=== PATIENT | male | born 1945 | race Caucasian/White ===

== ENCOUNTER 2016-09-10 23:34 | Inpatient (IN) | payer MEDICAID, MEDICARE, OTHER ==
[~2016-09-10] VITALS: Ht 170.2 cm; Wt 72.6 kg
--- NOTE | 2016-09-10 23:43 | Emergency Room Report ---
History of Present Illness General Chief Complaint: General Complaint Source: Medical Record, EMS, PMD Present Illness HPI Is a 71-year-old male with a history COPD and schizophrenia. Also history of joint weakness and anxiety. [facility] with chief complaint of generalized weakness and poor by mouth intake. He refusing food and medication. Patient is not cooperative in giving history. History is through prison staff and primary care Dr. No complaint of fever chills. No complaint of nausea vomiting or diarrhea. Allergies: Coded Allergies: CODEINE (Unverified Allergy, Unknown, 09/10/16) Patient History Past Medical History: see triage record, old chart reviewed, HTN Past Surgical History: other Pertinent Family History: none Social History: Reports: smoking Immunizations: other Reviewed Nursing Documentation: PMH: Agreed, PSxH: Agreed Review of Systems Constitutional: Reports: weakness All Other Systems: limited - Not cooperative. Physical Exam Vital Signs Date Time Temp Pulse Resp B/P Pulse Ox O2 Delivery O2 Flow Rate FiO2 09/10/16 23:34 97.0 18 119/76 98 Room Air vitals unremarkable Sp02 EP Interpretation: reviewed, normal General Appearance: no apparent distress, alert, thin, Chronically Ill Head: normocephalic, atraumatic Eyes: bilateral eye EOMI, bilateral eye PERRL ENT: hearing grossly normal, normal pharynx Neck: full range of motion, supple, no meningismus Respiratory: chest non-tender, lungs clear, normal breath sounds Cardiovascular #1: regular rate, rhythm, no murmur Gastrointestinal: normal bowel sounds, non tender, no mass, no organomegaly, no bruit, non-distended Musculoskeletal: back normal, normal range of motion Neurologic: alert, grossly normal Psychiatric: other - Flat affect Skin: warm/dry Medical Decision Making Diagnostic Impression: Primary Impression: Failure to thrive Qualified Codes: R62.7 - Adult failure to thrive Additional Impression: Dehydration ER Course Patient with failure to thrive. Probably more psychogenic than organic. No evidence of infection. Urinalysis still pending. I discussed the case with Dr. Dewitt who will admit for Dr. Salazar. Lab Results Impression labs unremarkable Rhythm Strip Diag. Results Rhythm Strip Time: 00:58 EP Interpretation: yes Rate: 71 Rhythm: NSR Last Vital Signs Date Time Temp Pulse Resp B/P Pulse Ox O2 Delivery O2 Flow Rate FiO2 09/10/16 23:34 97.0 18 119/76 98 Room Air Status: improved Disposition: ADMITTED INPATIENT Condition: Serious REMA GARCIA M.D. Sep 10, 2016 23:43
[2016-09-11] VITALS: BP 136/81
[2016-09-11] MEDS ORDERED: LORazepam Inj 2mg/ml 1ml IV PRN
[2016-09-11] MEDS ORDERED: Miralax 17gm pkt ORAL PRN
[2016-09-11] MEDS ORDERED: Mylanta II UD 30ml ORAL PRN
[2016-09-11] MEDS ORDERED: Zolpidem 5mg tab ORAL PRN
[2016-09-11 00:35] LABS: BASOPHILS % (AUTO) 1.1 % (0.0-2.0); EOSINOPHILS % (AUTO) 0.9 % (0.0-3.0); LYMPHOCYTES % (AUTO) 34.1 % (20.0-45.0); MEAN CORPUSCULAR HEMOGLOBIN 30.5 PG (27.0-31.0); MEAN CORPUSCULAR HGB CONC 33.8 G/DL (32.0-36.0); MEAN CORPUSCULAR VOLUME 90 FL (80-99); MEAN PLATELET VOLUME 12.3 FL (6.5-10.1); MONOCYTES % (AUTO) 5.4 % (1.0-10.0); NEUTROPHILS % (AUTO) 58.5 % (45.0-75.0); PLATELET COUNT 179 K/UL (150-450); RED CELL DISTRIBUTION WIDTH 13.4 % (11.6-14.8); WHITE BLOOD COUNT 8.1 K/UL (4.8-10.8)
[2016-09-11 00:54] LABS: ALANINE AMINOTRANSFERASE 17 U/L (3-41); ALBUMIN/GLOBULIN RATIO 0.9 (1.0-2.7); ANION GAP 24 (5-15); ASPARTATE AMINO TRANSFERASE 31 U/L (5-40); CALCIUM 10.4 mg/dL (8.6-10.2); CARBON DIOXIDE 22 mEQ/L (20-30); CHLORIDE 95 mEQ/L (98-107); GLOMERULAR FILTRATION RATE > 60 mL/min (>60); HEMOLYSIS 129; POTASSIUM 4.4 mEQ/L (3.4-4.9); SODIUM 141 mEQ/L (135-145); TOTAL PROTEIN 9.6 g/dL (6.6-8.7)
[2016-09-11 01:14] LABS: TROPONIN I < 0.30 ng/mL (<=0.30)
[2016-09-11 01:23] LABS: APPEARANCE,URINE CLEAR; KETONES,URINE 4+ (NEGATIVE); LEUKOCYTE ESTERASE ,URINE 1+ (NEGATIVE); NITRITE,URINE NEGATIVE (NEGATIVE); PH,URINE 6 (4.5-8.0); PROTEIN,URINE 1+ (NEGATIVE); UROBILINOGEN,URINE 4 MG/DL (0.0-1.0)
[2016-09-11 01:31] LABS: ICTOTEST POSITIVE; RBC,URINE 0-2 /HPF (0 - 0); SQUAMOUS EPITHELIAL CELL,UR FEW /LPF (NONE/OCC); WBC,URINE 0-2 /HPF (0 - 0)
[2016-09-11 01:44] VITALS: BP 135/83
[2016-09-11 04:00] VITALS: BP 124/79
[2016-09-11] MEDS ORDERED: FLEET ENEMA133 ML RECTAL (04:12)
[2016-09-11] MEDS ORDERED: MILK OF MA400 MG/51 ORAL (04:12)
[2016-09-11] MEDS ORDERED: COLACE100 MG ORAL (04:12)
[2016-09-11] MEDS ORDERED: ZYPREXA10 MG ORAL (04:12)
[2016-09-11] MEDS ORDERED: ACETAMINOPHEN325 M1 ORAL ×2 (04:12)
[2016-09-11] MEDS ORDERED: RESTORIL15 MG ORAL (04:12)
[2016-09-11] MEDS ORDERED: ATIVAN1 MG ORAL (04:12)
[2016-09-11] MEDS ORDERED: BISACODYL5 MG RECTAL (04:12)
[2016-09-11] MEDS ORDERED: SENOKOT8.6 MG PO (04:12)
[2016-09-11] MEDS ORDERED: DUONEB 0.5-3(2.53 ML HHN (04:12)
[2016-09-11] MEDS ORDERED: MULTI-VITAMIN1 EACH PO (04:12)
[2016-09-11] MEDS ORDERED: TYLENOL650 MG/20. ORAL (04:12)
[2016-09-11] MEDS ORDERED: MIRTAZAPINE15 MG ORAL (04:12)
--- NOTE | 2016-09-11 17:22 | Infectious Diseases Prog Note ---
Assessment/Plan Problems: (1) Failure to thrive Assessment & Plan: rhonda screen for HIV and syphilis, recommend dietitian consult (2) Dehydration Assessment & Plan: continue ivf fluids , monitor electrolytes (3) COPD (chronic obstructive pulmonary disease) Assessment & Plan: continue nebulizers, and oxygen (4) Schizophrenia Assessment & Plan: continue psych meds, folow up with psychiatrist Subjective Allergies: Coded Allergies: CODEINE (Unverified Allergy, Unknown, 09/10/16) Objective Vital Signs Last 24 Hour Vital Signs Date Time Temp Pulse Resp B/P Pulse Ox O2 Delivery O2 Flow Rate FiO2 09/11/16 04:00 96.5 72 20 124/79 99 Room Air 72 09/11/16 02:05 62 20 132/73 100 Room Air 09/11/16 01:44 63 17 135/83 100 Room Air 09/11/16 00:00 81 18 136/81 100 Room Air 09/10/16 23:34 97.0 18 119/76 98 Room Air Height (Feet): 5 Height (Inches): 7.00 Weight (Pounds): 160 Laboratory Tests Test 09/11/16 00:10 09/11/16 01:00 White Blood Count 8.1 K/UL (4.8-10.8) Red Blood Count 6.00 M/UL (4.70-6.10) Hemoglobin 18.0 G/DL (14.2-18.0) Hematocrit 54.1 % (42.0-52.0) H Mean Corpuscular Volume 90 FL (80-99) Mean Corpuscular Hemoglobin 30.5 PG (27.0-31.0) Mean Corpuscular Hemoglobin Concent 33.8 G/DL (32.0-36.0) Red Cell Distribution Width 13.4 % (11.6-14.8) Platelet Count 179 K/UL (150-450) Mean Platelet Volume 12.3 FL (6.5-10.1) H Neutrophils (%) (Auto) 58.5 % (45.0-75.0) Lymphocytes (%) (Auto) 34.1 % (20.0-45.0) Monocytes (%) (Auto) 5.4 % (1.0-10.0) Eosinophils (%) (Auto) 0.9 % (0.0-3.0) Basophils (%) (Auto) 1.1 % (0.0-2.0) Sodium Level 141 mEQ/L (135-145) Potassium Level 4.4 mEQ/L (3.4-4.9) Chloride Level 95 mEQ/L (98-107) L Carbon Dioxide Level 22 mEQ/L (20-30) Anion Gap 24 (5-15) H Blood Urea Nitrogen 17 mg/dL (7-23) Creatinine 1.0 mg/dL (0.7-1.2) Estimat Glomerular Filtration Rate > 60 mL/min (>60) Glucose Level 72 mg/dL (74-106) L Calcium Level 10.4 mg/dL (8.6-10.2) H Total Bilirubin 0.9 mg/dL (0.0-1.2) Aspartate Amino Transf (AST/SGOT) 31 U/L (5-40) Alanine Aminotransferase (ALT/SGPT) 17 U/L (3-41) Alkaline Phosphatase 71 U/L (40-129) Troponin I < 0.30 ng/mL (<=0.30) Total Protein 9.6 g/dL (6.6-8.7) H Albumin 4.6 g/dL (3.5-5.2) Globulin 5.0 g/dL Albumin/Globulin Ratio 0.9 (1.0-2.7) L Urine Color Yellow Urine Appearance Clear Urine pH 6 (4.5-8.0) Urine Specific [place] 1.025 (1.005-1.035) Urine Protein 1+ (NEGATIVE) H Urine Glucose (UA) Negative (NEGATIVE) Urine Ketones 4+ (NEGATIVE) H Urine Occult Blood Negative (NEGATIVE) Urine Nitrite Negative (NEGATIVE) Urine Bilirubin 1+ (NEGATIVE) H Urine Ictotest Positive Urine Urobilinogen 4 MG/DL (0.0-1.0) H Urine Leukocyte Esterase 1+ (NEGATIVE) H Urine RBC 0-2 /HPF (0 - 0) H Urine WBC 0-2 /HPF (0 - 0) Urine Squamous Epithelial Cells Few /LPF (NONE/OCC) Urine Bacteria None /HPF (NONE) Current Medications Medications (Trade) Dose Ordered Sig/Mili Route PRN Reason Start Time Stop Time Status Last Admin Dose Admin Acetaminophen (Tylenol) 650 mg Q4H PRN ORAL fever 09/11/16 00:00 10/11/16 00:00 Al Hydroxide/Mg Hydroxide (Mylanta II) 30 ml Q6H PRN ORAL dyspepsia 09/11/16 00:00 10/11/16 00:00 Dextrose (Dextrose 50%) STAT PRN IV Hypoglycemia 09/11/16 00:00 10/11/16 00:00 Lorazepam (Ativan 2mg/ml 1ml) 0.5 mg Q4H PRN IV For Anxiety 09/11/16 00:00 09/18/16 00:00 Ondansetron HCl (Zofran) 4 mg Q6H PRN IVP Nausea & Vomiting 09/11/16 00:00 10/11/16 00:00 Polyethylene Glycol (Miralax) 17 gm HSPRN PRN ORAL Constipation 09/11/16 00:00 10/11/16 00:00 Zolpidem Tartrate (Ambien) 5 mg HSPRN PRN ORAL Insomnia 09/11/16 00:00 10/11/16 00:00 Irasema Molina M.D. Sep 11, 2016 17:22
--- NOTE | 2016-09-11 17:30 | History and Physical Report ---
DATE OF ADMISSION: 09/11/2016 TIME SEEN: 2 p.m. CONSULTANTS: 1. José Manuel Dewitt M.D. 2. Daisy Travis M.D. CHIEF COMPLAINT: Failure to thrive, dehydration, alcohol intoxication, and encephalopathy. BRIEF HISTORY: This is a 71-year-old male from [facility] presents to [facility] with the above-mentioned diagnoses. Currently, sleeping in bed and refusing to answer questions. PAST MEDICAL HISTORY: Includes failure to thrive, dehydration, alcohol intoxication, encephalopathy, and COPD. PAST SURGICAL HISTORY: Unknown. MEDICATIONS: Includes Tylenol, MiraLax, Zofran, Ativan, Dextrose, Ambien, and Mylanta. ALLERGIES: Codeine. SOCIAL HISTORY: Unable to obtain. REVIEW OF SYSTEMS: Unavailable. PHYSICAL EXAMINATION: GENERAL: The patient is lethargic, sleeping in bed, and refusing to answer questions. VITAL SIGNS: Temperature 96 degrees, pulse 72, respiratory rate 20, and blood pressure 124/79. CARDIOVASCULAR: No murmurs. LUNGS: Distant and clear. ABDOMEN: Bowel sounds positive. Nontender and nondistended. EXTREMITIES: No cyanosis, clubbing, or edema NEUROLOGIC: The patient moves all extremities. He does not want to follow commands. LABORATORY DATA: Lab exam show CBC is normal. BMP show chloride 95 and glucose 72, otherwise normal. Urinalysis show 1+ bilirubin and 1+ leukocyte esterase. ASSESSMENT: 1. Failure to thrive. 2. Urinary tract infection. 3. Dehydration. 4. Alcohol intoxication. 5. Encephalopathy. 6. Chronic obstructive pulmonary disease. PLAN: 1. Continue premedications. 2. IV fluids. 3. OT, PT, and dietary evaluation. 4. Antibiotics per Infectious Disease. 5. CBC and BMP in the morning. 6. Resume home medications. 7. Dr. Dewitt, Dr. Travis, and Dr. Massey to consult. 8. We will continue to follow this patient medically. Kulwant Salazar D.O. DR: MAXWELL JOB#: [id number] CC:
--- NOTE | 2016-09-11 18:15 | Consultation ---
DATE OF CONSULTATION: INFECTIOUS DISEASE CONSULTATION REQUESTING PHYSICIAN: Kulwant Salazar D.O. REASON FOR CONSULTATION: Failure to thrive, rule out infectious etiology. HISTORY OF PRESENT ILLNESS: The patient is a 71-year-old male with history of schizophrenia, chronic obstructive pulmonary disease, generalized weakness, and anxiety. [facility] was [facility] to the emergency room at [facility] with chief complaint of generalized weakness and poor oral intake. The patient has been refusing food and medication and he had not been cooperative with the nursing staff to take his food or medicine at own, so he was sent to the emergency room for further evaluation and management. The patient was found to be dehydrated and malnourished. He was admitted for workup and further evaluation and I was consulted by the primary provider to rule out infectious etiology. As of note, the patient is poor historian, cannot provide any history at this point. History was mainly obtained from the medical record. REVIEW OF SYSTEMS: Unable to obtain at this point, the patient is a poor historian. PAST MEDICAL HISTORY: Significant for schizophrenia and COPD. PAST SURGICAL HISTORY: Negative. MEDICATIONS: He is on Mylanta, Ambien, lorazepam, Zofran, MiraLax, and Tylenol. ALLERGIES: He is allergic to codeine as per the record. SOCIAL HISTORY: [facility]. No recent drugs, tobacco, or alcohol. FAMILY HISTORY: Unable to obtain. PHYSICAL EXAMINATION: GENERAL: This is an elderly male, malnourished, lying in bed, nonverbal, not in acute distress. VITAL SIGNS: Temperature 96.5 degrees, pulse 72, respirations 20, blood pressure 134/79, and saturation 99% on room air. HEENT: Normocephalic and atraumatic. Pupils are reactive to light. Moist oral mucosa. No exudate. No thrush. NECK: Supple. No lymphadenopathy. CARDIOVASCULAR: Regular rate and rhythm. No murmur. LUNGS: Clear bilaterally. No wheezing or rhonchi. ABDOMEN: Soft, nontender, and nondistended. Positive bowel sounds. No hepatosplenomegaly. No ascites. EXTREMITIES: No edema or cyanosis. SKIN: No rash or hives. LABORATORY DATA: Labs showed a white count of 8.1 and platelet count of 179,000. BUN of 17 and creatinine of 1. Urinalysis showed +1 leukocyte esterase, WBC 0 to 2, no bacteria. ASSESSMENT AND RECOMMENDATION: 1. Failure to thrive, rule out infectious etiology. We will screen him for human immunodeficiency virus and syphilis with human immunodeficiency virus test and RVR. Check TSH level. Recommend sales manager [place] consultation. 2. Dehydration. Continue fluids for hydration. Monitor electrolytes. 3. Schizophrenia. Continue psych medications. Follow up with psychiatrist. 4. Chronic obstructive pulmonary disease. Continue inhalers and oxygen as needed. Irasema Molina M.D. DR: REDDY JOB#: [id number] CC:
--- NOTE | 2016-09-11 19:16 | Consultation ---
History of Present Illness General Date patient seen: Sep 11, 2016 Chief Complaint: General Complaint Reason for Consultation: inpatient management Present Illness Allergies: Coded Allergies: CODEINE (Unverified Allergy, Unknown, 09/10/16) Medication History Scheduled Acetaminophen* (Acetaminophen 325MG Tablet*), 325 MG ORAL Q6HR, (Reported) Bisacodyl* (Dulcolax*), 10 MG RECTAL DAILY, (Reported) Docusate Sodium* (Colace*), 100 MG ORAL BEDTIME, (Reported) Magnesium Hydroxide* (Milk Of Magnesia*), 30 ML ORAL Q72H, (Reported) Mirtazapine* (Remeron*), 7.5 MG ORAL BEDTIME, (Reported) Multivitamin (Multi-Vitamin Daily), 1 EACH PO DAILY, (Reported) Olanzapine* (Zyprexa*), 10 MG ORAL BID, (Reported) Sennosides (Senokot), 8.6 MG PO BEDTIME, (Reported) Scheduled PRN Acetaminophen (Acetaminophen), 650 MG ORAL Q6H PRN for Fever/Headache/Mild Pain, (Reported) Acetaminophen* (Acetaminophen 325MG Tablet*), 650 MG ORAL Q6H PRN for Pain Scale (6-10), (Reported) Ipratropium/Albuterol Sulfate (DuoNeb 0.5-3(2.5)mg/3ml), 3 ML HHN Q4HR PRN for Shortness of Breath, (Reported) Lorazepam* (Ativan*), 1 MG ORAL EVERY 4 HOURS PRN for For Anxiety, (Reported) Na Phos,M-B/Na Phos,Di-Ba* (Fleet Enema*), 133 ML RECTAL DAILY PRN for Constipation, (Reported) Temazepam* (Restoril*), 15 MG ORAL BEDTIME PRN for Insomnia, (Reported) Patient History Healthcare decision maker TELMA CEBALLOS, PUBLIC GUARDIAN Resuscitation status Full Code Advanced Directive on File No Past Medical/Surgical History Past Medical/Surgical History: (1) Schizophrenia (2) COPD (chronic obstructive pulmonary disease) Review of Systems Constitutional: Reports: no symptoms Eye: Reports: no symptoms ENT: Reports: no symptoms All Other Systems: negative except mentioned in HPI Physical Exam General Appearance: cachetic Lines, tubes and drains: peripheral HEENT: normocephalic, atraumatic Neck: non-tender, normal alignment Respiratory/Chest: chest wall non-tender, lungs clear Abdomen: normal bowel sounds, non tender Genitourinary/Rectal: normal genital exam Last 24 Hour Vital Signs Date Time Temp Pulse Resp B/P Pulse Ox O2 Delivery O2 Flow Rate FiO2 09/11/16 04:00 96.5 72 20 124/79 99 Room Air 72 09/11/16 02:05 62 20 132/73 100 Room Air 09/11/16 01:44 63 17 135/83 100 Room Air 09/11/16 00:00 81 18 136/81 100 Room Air 09/10/16 23:34 97.0 18 119/76 98 Room Air Intake and Output 09/10/16 09/11/16 19:00 07:00 Intake Total 360 ml Output Total 75 ml Balance 285 ml Intake Oral 360 ml Output Urine Total 75 ml # Voids 1 Laboratory Tests Test 09/11/16 00:10 09/11/16 01:00 White Blood Count 8.1 K/UL (4.8-10.8) Red Blood Count 6.00 M/UL (4.70-6.10) Hemoglobin 18.0 G/DL (14.2-18.0) Hematocrit 54.1 % (42.0-52.0) H Mean Corpuscular Volume 90 FL (80-99) Mean Corpuscular Hemoglobin 30.5 PG (27.0-31.0) Mean Corpuscular Hemoglobin Concent 33.8 G/DL (32.0-36.0) Red Cell Distribution Width 13.4 % (11.6-14.8) Platelet Count 179 K/UL (150-450) Mean Platelet Volume 12.3 FL (6.5-10.1) H Neutrophils (%) (Auto) 58.5 % (45.0-75.0) Lymphocytes (%) (Auto) 34.1 % (20.0-45.0) Monocytes (%) (Auto) 5.4 % (1.0-10.0) Eosinophils (%) (Auto) 0.9 % (0.0-3.0) Basophils (%) (Auto) 1.1 % (0.0-2.0) Sodium Level 141 mEQ/L (135-145) Potassium Level 4.4 mEQ/L (3.4-4.9) Chloride Level 95 mEQ/L (98-107) L Carbon Dioxide Level 22 mEQ/L (20-30) Anion Gap 24 (5-15) H Blood Urea Nitrogen 17 mg/dL (7-23) Creatinine 1.0 mg/dL (0.7-1.2) Estimat Glomerular Filtration Rate > 60 mL/min (>60) Glucose Level 72 mg/dL (74-106) L Calcium Level 10.4 mg/dL (8.6-10.2) H Total Bilirubin 0.9 mg/dL (0.0-1.2) Aspartate Amino Transf (AST/SGOT) 31 U/L (5-40) Alanine Aminotransferase (ALT/SGPT) 17 U/L (3-41) Alkaline Phosphatase 71 U/L (40-129) Troponin I < 0.30 ng/mL (<=0.30) Total Protein 9.6 g/dL (6.6-8.7) H Albumin 4.6 g/dL (3.5-5.2) Globulin 5.0 g/dL Albumin/Globulin Ratio 0.9 (1.0-2.7) L Urine Color Yellow Urine Appearance Clear Urine pH 6 (4.5-8.0) Urine Specific [place] 1.025 (1.005-1.035) Urine Protein 1+ (NEGATIVE) H Urine Glucose (UA) Negative (NEGATIVE) Urine Ketones 4+ (NEGATIVE) H Urine Occult Blood Negative (NEGATIVE) Urine Nitrite Negative (NEGATIVE) Urine Bilirubin 1+ (NEGATIVE) H Urine Ictotest Positive Urine Urobilinogen 4 MG/DL (0.0-1.0) H Urine Leukocyte Esterase 1+ (NEGATIVE) H Urine RBC 0-2 /HPF (0 - 0) H Urine WBC 0-2 /HPF (0 - 0) Urine Squamous Epithelial Cells Few /LPF (NONE/OCC) Urine Bacteria None /HPF (NONE) Height (Feet): 5 Height (Inches): 7.00 Weight (Pounds): 160 Medications Current Medications Medications (Trade) Dose Ordered Sig/Mili Route PRN Reason Start Time Stop Time Status Last Admin Dose Admin Acetaminophen (Tylenol) 650 mg Q4H PRN ORAL fever 09/11/16 00:00 10/11/16 00:00 Al Hydroxide/Mg Hydroxide (Mylanta II) 30 ml Q6H PRN ORAL dyspepsia 09/11/16 00:00 10/11/16 00:00 Dextrose (Dextrose 50%) STAT PRN IV Hypoglycemia 09/11/16 00:00 10/11/16 00:00 Lorazepam (Ativan 2mg/ml 1ml) 0.5 mg Q4H PRN IV For Anxiety 09/11/16 00:00 09/18/16 00:00 Ondansetron HCl (Zofran) 4 mg Q6H PRN IVP Nausea & Vomiting 09/11/16 00:00 10/11/16 00:00 Polyethylene Glycol (Miralax) 17 gm HSPRN PRN ORAL Constipation 09/11/16 00:00 10/11/16 00:00 Zolpidem Tartrate (Ambien) 5 mg HSPRN PRN ORAL Insomnia 09/11/16 00:00 10/11/16 00:00 Assessment/Plan Problem List: (1) COPD (chronic obstructive pulmonary disease) ICD Codes: J44.9 - Chronic obstructive pulmonary disease, unspecified SNOMED: 37848030 (2) Refusal of treatment by patient ICD Codes: Z53.20 - Procedure and treatment not carried out because of patient' s decision for unspecified reasons SNOMED: 342236158 (3) Failure to thrive SNOMED: 54179538 Qualifiers: Qualified Codes: R62.7 - Adult failure to thrive (4) Schizophrenia ICD Codes: F20.9 - Schizophrenia, unspecified SNOMED: 47711432 Assessment/Plan psych evaluation respiratory treatment symptomatic treatment KALIN SERVIN Sep 11, 2016 19:16
--- NOTE | 2016-09-12 14:01 | General Progress Note ---
Assessment/Plan Problem List: (1) Alcohol Intoxication (2) Dehydration ICD Codes: E86.0 - Dehydration SNOMED: 23967779 (3) Failure to thrive SNOMED: 62552630 Qualifiers: Qualified Codes: R62.7 - Adult failure to thrive (4) COPD (chronic obstructive pulmonary disease) ICD Codes: J44.9 - Chronic obstructive pulmonary disease, unspecified SNOMED: 03469149 (5) Schizophrenia ICD Codes: F20.9 - Schizophrenia, unspecified SNOMED: 06275421 Status: unchanged Assessment/Plan ot pt diet ivf cbc bmp am psyc tx Subjective Constitutional: Reports: weakness Allergies: Coded Allergies: CODEINE (Unverified Allergy, Unknown, 09/10/16) All Systems: reviewed and negative except above Subjective sleepy calm Objective Intake and Output 09/11/16 09/12/16 19:00 07:00 Intake Total 120 ml 400 ml Balance 120 ml 400 ml Intake Oral 120 ml 400 ml # Voids 2 Height (Feet): 5 Height (Inches): 7.00 Weight (Pounds): 160 General Appearance: lethargic EENT: normal ENT inspection Neck: normal alignment Cardiovascular: normal peripheral pulses, normal rate, regular rhythm Respiratory/Chest: chest wall non-tender, lungs clear, normal breath sounds Abdomen: normal bowel sounds, non tender, soft Edema: no edema noted Arm (L), no edema noted Arm (R), no edema noted Leg (L), no edema noted Leg (R), no edema noted Pedal (L), no edema noted Pedal (R), no edema noted Generalized Neurologic: motor weakness Skin: normal pigmentation, warm/dry ANN MARIE WISE Sep 12, 2016 14:01
--- NOTE | 2016-09-12 17:11 | Infectious Diseases Prog Note ---
Assessment/Plan Problems: (1) Failure to thrive Assessment & Plan: rhonda screen for HIV and syphilis, recommend dietitian consult (2) Dehydration Assessment & Plan: continue ivf fluids , monitor electrolytes (3) COPD (chronic obstructive pulmonary disease) Assessment & Plan: continue nebulizers, and oxygen (4) Schizophrenia Assessment & Plan: continue psych meds, folow up with psychiatrist Subjective Constitutional: Reports: no symptoms HEENT: Reports: no symptoms Respiratory: Reports: no symptoms Breasts: Reports: no symptoms Cardiovascular: Reports: no symptoms Gastrointestinal/Abdominal: Reports: no symptoms Genitourinary: Reports: no symptoms Neurologic: Reports: no symptoms Psychiatric: Reports: no symptoms Skin: Reports: no symptoms Endocrine: Reports: no symptoms Hematologic: Reports: no symptoms Musculoskeletal: Reports: no symptoms Allergies: Coded Allergies: CODEINE (Unverified Allergy, Unknown, 09/10/16) Objective Height (Feet): 5 Height (Inches): 7.00 Weight (Pounds): 160 General Appearance: WD/WN, no acute distress HEENT: normocephalic, atraumatic, anicteric, mucous membranes moist Respiratory/Chest: chest wall non-tender, lungs clear, normal breath sounds, no respiratory distress, no accessory muscle use Cardiovascular: normal peripheral pulses, normal rate, regular rhythm, no gallop/murmur Abdomen: normal bowel sounds, soft, non tender, no organomegaly, non distended , no mass Extremities: no cyanosis, no clubbing Skin: no rash, no lesions Lymphatic: no neck adenopathy, no groin adenopathy Microbiology Date/Time Source Procedure Growth Status 09/11/16 00:25 Arm Right Blood Culture - Preliminary NO GROWTH AFTER 24 HOURS Resulted 09/11/16 00:10 Arm Left Blood Culture - Preliminary NO GROWTH AFTER 24 HOURS Resulted Current Medications Medications (Trade) Dose Ordered Sig/Mili Route PRN Reason Start Time Stop Time Status Last Admin Dose Admin Acetaminophen (Tylenol) 650 mg Q4H PRN ORAL fever 09/11/16 00:00 10/11/16 00:00 Al Hydroxide/Mg Hydroxide (Mylanta II) 30 ml Q6H PRN ORAL dyspepsia 09/11/16 00:00 10/11/16 00:00 Dextrose (Dextrose 50%) STAT PRN IV Hypoglycemia 09/11/16 00:00 10/11/16 00:00 Lorazepam (Ativan 2mg/ml 1ml) 0.5 mg Q4H PRN IV For Anxiety 09/11/16 00:00 09/18/16 00:00 Ondansetron HCl (Zofran) 4 mg Q6H PRN IVP Nausea & Vomiting 09/11/16 00:00 10/11/16 00:00 Polyethylene Glycol (Miralax) 17 gm HSPRN PRN ORAL Constipation 09/11/16 00:00 10/11/16 00:00 Zolpidem Tartrate (Ambien) 5 mg HSPRN PRN ORAL Insomnia 09/11/16 00:00 10/11/16 00:00 Irasema Molina M.D. Sep 12, 2016 17:11
[2016-09-12 17:43] VITALS: BP 100/71
--- NOTE | 2016-09-12 18:43 | Pulmonology Progress Note ---
Assessment/Plan Problems: (1) COPD (chronic obstructive pulmonary disease) (2) Refusal of treatment by patient (3) Failure to thrive (4) Schizophrenia Subjective Allergies: Coded Allergies: CODEINE (Unverified Allergy, Unknown, 09/10/16) Objective Last 24 Hour Vital Signs Date Time Temp Pulse Resp B/P Pulse Ox O2 Delivery O2 Flow Rate FiO2 09/12/16 17:43 98.1 78 18 100/71 97 Room Air Intake and Output 09/11/16 09/12/16 19:00 07:00 Intake Total 120 ml 400 ml Balance 120 ml 400 ml Intake Oral 120 ml 400 ml # Voids 2 Microbiology Date/Time Source Procedure Growth Status 09/11/16 00:25 Arm Right Blood Culture - Preliminary NO GROWTH AFTER 24 HOURS Resulted 09/11/16 00:10 Arm Left Blood Culture - Preliminary NO GROWTH AFTER 24 HOURS Resulted Current Medications Medications (Trade) Dose Ordered Sig/Mili Route PRN Reason Start Time Stop Time Status Last Admin Dose Admin Acetaminophen (Tylenol) 650 mg Q4H PRN ORAL fever 09/11/16 00:00 10/11/16 00:00 Al Hydroxide/Mg Hydroxide (Mylanta II) 30 ml Q6H PRN ORAL dyspepsia 09/11/16 00:00 10/11/16 00:00 Dextrose (Dextrose 50%) STAT PRN IV Hypoglycemia 09/11/16 00:00 10/11/16 00:00 Lorazepam (Ativan 2mg/ml 1ml) 0.5 mg Q4H PRN IV For Anxiety 09/11/16 00:00 09/18/16 00:00 Ondansetron HCl (Zofran) 4 mg Q6H PRN IVP Nausea & Vomiting 09/11/16 00:00 10/11/16 00:00 Polyethylene Glycol (Miralax) 17 gm HSPRN PRN ORAL Constipation 09/11/16 00:00 10/11/16 00:00 Zolpidem Tartrate (Ambien) 5 mg HSPRN PRN ORAL Insomnia 09/11/16 00:00 10/11/16 00:00 KALIN SERVIN Sep 12, 2016 18:43
[2016-09-12 20:00] VITALS: BP 114/74
--- NOTE | 2016-09-13 08:00 | Consultation ---
DATE OF CONSULTATION: PSYCHOTHERAPY CONSULTATION PROGRESS NOTE CONSULTING PHYSICIAN: Bari Molina M.D. TREATING ATTENDING PHYSICIAN: Kulwant Salazar D.O. HISTORY OF PRESENT ILLNESS: The patient is a 71-year-old male patient of [facility]. The patient was admitted to the hospital for failure to thrive and dehydration. The patient has been very helpless, hopeless, depressed, poorly motivated, lethargic, . The patient has a history of paranoid schizophrenia and treatment, withdrawn, confused, and disorganized. the patient has had suicidal or homicidal thoughts of ideation. Denies auditory or visual hallucinations. PAST MEDICAL HISTORY: The patient has a history of chronic obstructive pulmonary disease, failure to thrive, and dehydration. ALLERGIES: The patient is allergic to codeine. SUBSTANCE ABUSE HISTORY: There is no indication of alcohol use, illicit substance use, or smoking cigarette. PSYCHIATRIC HISTORY: The patient does have a history of paranoid schizophrenia. The patient has had multiple psychiatric hospitalizations and has been treated with psychotropic medications in the past. SOCIAL HISTORY: The patient is a 71-year-old male patient from [facility] . The patient is financially sustained through Medicare and [employer]. MENTAL STATUS EXAMINATION: The patient is alert and oriented x2, to person and place. Mood is depressed. Affect is congruent. Thought process is disorganized. Thought content is confused. The patient has poor attention and concentration. Poor insight, judgment, and impulse control. DIAGNOSES: Harper I Paranoid schizophrenia. Harper II Deferred. Harper III Per History and Physical. PLAN: This clinician has assessed the patient today. The patient is receiving reality orientation and psychotherapy. . Continue with medication management and behavioral management. This clinician has reviewed the patient's chart. Discussed the treatment with nursing staff. Bari Molina PsyD. DR: Андрей JOB#: [id number] CC:
--- NOTE | 2016-09-13 08:41 | General Progress Note ---
Assessment/Plan Problem List: (1) Alcohol Intoxication (2) Dehydration ICD Codes: E86.0 - Dehydration SNOMED: 92694145 (3) Failure to thrive SNOMED: 25214987 Qualifiers: Qualified Codes: R62.7 - Adult failure to thrive (4) COPD (chronic obstructive pulmonary disease) ICD Codes: J44.9 - Chronic obstructive pulmonary disease, unspecified SNOMED: 53773303 (5) Schizophrenia ICD Codes: F20.9 - Schizophrenia, unspecified SNOMED: 04280923 Status: stable, progressing, tolerating diet Assessment/Plan ot pt diet ivf cbc bmp am psyc tx promise ltach eval Subjective Constitutional: Reports: weakness Allergies: Coded Allergies: CODEINE (Unverified Allergy, Unknown, 09/10/16) All Systems: reviewed and negative except above Subjective sleepy calm Objective Last 24 Hour Vital Signs Date Time Temp Pulse Resp B/P Pulse Ox O2 Delivery O2 Flow Rate FiO2 09/12/16 20:00 98.2 83 18 114/74 96 Room Air 09/12/16 17:43 98.1 78 18 100/71 97 Room Air Intake and Output 09/12/16 09/13/16 19:00 07:00 Intake Total 480 ml Balance 480 ml Intake Oral 480 ml # Voids 4 Height (Feet): 5 Height (Inches): 7.00 Weight (Pounds): 160 General Appearance: lethargic EENT: normal ENT inspection Neck: normal alignment Cardiovascular: normal peripheral pulses, normal rate, regular rhythm Respiratory/Chest: chest wall non-tender, lungs clear, normal breath sounds Abdomen: normal bowel sounds, non tender, soft Extremities: normal inspection Edema: no edema noted Arm (L), no edema noted Arm (R), no edema noted Leg (L), no edema noted Leg (R), no edema noted Pedal (L), no edema noted Pedal (R), no edema noted Generalized Neurologic: motor weakness Skin: normal pigmentation, warm/dry ANN MARIE WISE Sep 13, 2016 08:41
--- NOTE | 2016-09-13 14:42 | Infectious Diseases Prog Note ---
Assessment/Plan Problems: (1) Failure to thrive Assessment & Plan: will screen for HIV and syphilis, labs were not collected, will reorder, recommend dietitian consult (2) Dehydration Assessment & Plan: continue ivf fluids , monitor electrolytes (3) COPD (chronic obstructive pulmonary disease) Assessment & Plan: continue nebulizers, and oxygen (4) Schizophrenia Assessment & Plan: continue psych meds, folow up with psychiatrist Subjective Constitutional: Reports: no symptoms HEENT: Reports: no symptoms Respiratory: Reports: no symptoms Breasts: Reports: no symptoms Cardiovascular: Reports: no symptoms Gastrointestinal/Abdominal: Reports: no symptoms Genitourinary: Reports: no symptoms Neurologic: Reports: no symptoms Psychiatric: Reports: no symptoms Skin: Reports: no symptoms Endocrine: Reports: no symptoms Hematologic: Reports: no symptoms Musculoskeletal: Reports: no symptoms Allergies: Coded Allergies: CODEINE (Unverified Allergy, Unknown, 09/10/16) Objective Vital Signs Last 24 Hour Vital Signs Date Time Temp Pulse Resp B/P Pulse Ox O2 Delivery O2 Flow Rate FiO2 09/12/16 20:00 98.2 83 18 114/74 96 Room Air 09/12/16 17:43 98.1 78 18 100/71 97 Room Air Height (Feet): 5 Height (Inches): 7.00 Weight (Pounds): 160 General Appearance: WD/WN, no acute distress HEENT: normocephalic, atraumatic, anicteric, mucous membranes moist Respiratory/Chest: chest wall non-tender, lungs clear, normal breath sounds, no respiratory distress, no accessory muscle use Cardiovascular: normal peripheral pulses, normal rate, regular rhythm, no gallop/murmur, no JVD Abdomen: normal bowel sounds, soft, non tender, no organomegaly, non distended , no mass, no scars Extremities: no cyanosis, no clubbing Skin: no rash, no lesions Neurologic/Psychiatric: alert, responsive Musculoskeletal: normal muscle bulk Microbiology Date/Time Source Procedure Growth Status 09/11/16 00:25 Arm Right Blood Culture - Preliminary NO GROWTH AFTER 48 HOURS Resulted 09/11/16 00:10 Arm Left Blood Culture - Preliminary NO GROWTH AFTER 48 HOURS Resulted Current Medications Medications (Trade) Dose Ordered Sig/Mili Route PRN Reason Start Time Stop Time Status Last Admin Dose Admin Acetaminophen (Tylenol) 650 mg Q4H PRN ORAL fever 09/11/16 00:00 8/5/17 00:00 Al Hydroxide/Mg Hydroxide (Mylanta II) 30 ml Q6H PRN ORAL dyspepsia 09/11/16 00:00 10/11/16 00:00 Dextrose (Dextrose 50%) STAT PRN IV Hypoglycemia 09/11/16 00:00 10/11/16 00:00 Lorazepam (Ativan 2mg/ml 1ml) 0.5 mg Q4H PRN IV For Anxiety 09/11/16 00:00 09/18/16 00:00 Ondansetron HCl (Zofran) 4 mg Q6H PRN IVP Nausea & Vomiting 09/11/16 00:00 10/11/16 00:00 Polyethylene Glycol (Miralax) 17 gm HSPRN PRN ORAL Constipation 09/11/16 00:00 10/11/16 00:00 Zolpidem Tartrate (Ambien) 5 mg HSPRN PRN ORAL Insomnia 09/11/16 00:00 10/11/16 00:00 Irasema Molina M.D. Sep 13, 2016 14:42
--- NOTE | 2016-09-13 21:52 | Pulmonology Progress Note ---
Assessment/Plan Problems: (1) COPD (chronic obstructive pulmonary disease) (2) Refusal of treatment by patient (3) Failure to thrive (4) Schizophrenia Subjective Allergies: Coded Allergies: CODEINE (Unverified Allergy, Unknown, 09/10/16) Objective Intake and Output 09/12/16 09/13/16 19:00 07:00 Intake Total 480 ml Balance 480 ml Intake Oral 480 ml # Voids 4 Microbiology Date/Time Source Procedure Growth Status 09/11/16 00:25 Arm Right Blood Culture - Preliminary NO GROWTH AFTER 48 HOURS Resulted 09/11/16 00:10 Arm Left Blood Culture - Preliminary NO GROWTH AFTER 48 HOURS Resulted Current Medications Medications (Trade) Dose Ordered Sig/Mili Route PRN Reason Start Time Stop Time Status Last Admin Dose Admin Acetaminophen (Tylenol) 650 mg Q4H PRN ORAL fever 09/11/16 00:00 10/11/16 00:00 Al Hydroxide/Mg Hydroxide (Mylanta II) 30 ml Q6H PRN ORAL dyspepsia 09/11/16 00:00 10/11/16 00:00 Dextrose (Dextrose 50%) STAT PRN IV Hypoglycemia 09/11/16 00:00 10/11/16 00:00 Lorazepam (Ativan 2mg/ml 1ml) 0.5 mg Q4H PRN IV For Anxiety 09/11/16 00:00 09/18/16 00:00 Ondansetron HCl (Zofran) 4 mg Q6H PRN IVP Nausea & Vomiting 09/11/16 00:00 10/11/16 00:00 Polyethylene Glycol (Miralax) 17 gm HSPRN PRN ORAL Constipation 09/11/16 00:00 10/11/16 00:00 Zolpidem Tartrate (Ambien) 5 mg HSPRN PRN ORAL Insomnia 09/11/16 00:00 10/11/16 00:00 KALIN SERVIN Sep 13, 2016 21:52
--- NOTE | 2016-09-14 07:39 | General Progress Note ---
Assessment/Plan Problem List: (1) Alcohol Intoxication (2) Dehydration ICD Codes: E86.0 - Dehydration SNOMED: 22325169 (3) Failure to thrive SNOMED: 10781506 Qualifiers: Qualified Codes: R62.7 - Adult failure to thrive (4) COPD (chronic obstructive pulmonary disease) ICD Codes: J44.9 - Chronic obstructive pulmonary disease, unspecified SNOMED: 25490701 (5) Schizophrenia ICD Codes: F20.9 - Schizophrenia, unspecified SNOMED: 96465777 Status: stable, progressing, tolerating diet Assessment/Plan ot pt diet ivf cbc bmp am psyc transfer Subjective Constitutional: Reports: weakness Allergies: Coded Allergies: CODEINE (Unverified Allergy, Unknown, 09/10/16) All Systems: reviewed and negative except above Subjective confused in bed Objective Intake and Output 09/13/16 09/14/16 19:00 07:00 Intake Total 120 ml Balance 120 ml Intake Oral 120 ml Height (Feet): 5 Height (Inches): 7.00 Weight (Pounds): 160 General Appearance: confused EENT: normal ENT inspection Neck: normal alignment Cardiovascular: normal peripheral pulses, normal rate, regular rhythm Respiratory/Chest: chest wall non-tender, lungs clear, normal breath sounds Abdomen: normal bowel sounds, non tender, soft Extremities: normal inspection Edema: no edema noted Arm (L), no edema noted Arm (R), no edema noted Leg (L), no edema noted Leg (R), no edema noted Pedal (L), no edema noted Pedal (R), no edema noted Generalized Neurologic: motor weakness Skin: normal pigmentation, warm/dry ANN MARIE WISE Sep 14, 2016 07:39
[2016-09-14] MEDS ORDERED: ACETAMINOPHEN325 M1 ORAL (09:30)
[2016-09-14] MEDS ORDERED: MIRALAX17 G2 ORAL (09:31)
[2016-09-14] MEDS ORDERED: ZOFRAN 4 MG4 MG/2 ML IV (09:31)
[2016-09-14] MEDS ORDERED: MYLANTA30 M1 PO (09:31)
[2016-09-14] MEDS ORDERED: AMBIEN5 MG ORAL (09:31)
[2016-09-14] MEDS ORDERED: ATIVAN0.5 MG IV (09:31)
--- NOTE | 2016-09-14 10:42 | Infectious Diseases Prog Note ---
Assessment/Plan Problems: (1) Failure to thrive Assessment & Plan: will screen for HIV and syphilis, labs were not collected, will reorder, recommend dietitian consult (2) Dehydration Assessment & Plan: continue ivf fluids , monitor electrolytes (3) COPD (chronic obstructive pulmonary disease) Assessment & Plan: continue nebulizers, and oxygen (4) Schizophrenia Assessment & Plan: continue psych meds, folow up with psychiatrist Subjective ROS Limited/Unobtainable: Yes Constitutional: Reports: no symptoms Allergies: Coded Allergies: CODEINE (Unverified Allergy, Unknown, 09/10/16) Objective Height (Feet): 5 Height (Inches): 7.00 Weight (Pounds): 160 Current Medications Medications (Trade) Dose Ordered Sig/Mili Route PRN Reason Start Time Stop Time Status Last Admin Dose Admin Acetaminophen (Tylenol) 650 mg Q4H PRN ORAL fever 09/11/16 00:00 10/11/16 00:00 Al Hydroxide/Mg Hydroxide (Mylanta II) 30 ml Q6H PRN ORAL dyspepsia 09/11/16 00:00 10/11/16 00:00 Dextrose (Dextrose 50%) STAT PRN IV Hypoglycemia 09/11/16 00:00 10/11/16 00:00 Lorazepam (Ativan 2mg/ml 1ml) 0.5 mg Q4H PRN IV For Anxiety 09/11/16 00:00 09/18/16 00:00 Ondansetron HCl (Zofran) 4 mg Q6H PRN IVP Nausea & Vomiting 09/11/16 00:00 10/11/16 00:00 Polyethylene Glycol (Miralax) 17 gm HSPRN PRN ORAL Constipation 09/11/16 00:00 10/11/16 00:00 Zolpidem Tartrate (Ambien) 5 mg HSPRN PRN ORAL Insomnia 09/11/16 00:00 10/11/16 00:00 Irasema Molina M.D. Sep 14, 2016 10:42
--- NOTE | 2016-09-14 15:44 | Pulmonology Progress Note ---
Assessment/Plan Problems: (1) COPD (chronic obstructive pulmonary disease) (2) Refusal of treatment by patient (3) Failure to thrive (4) Schizophrenia Subjective Allergies: Coded Allergies: CODEINE (Unverified Allergy, Unknown, 09/10/16) Objective Intake and Output 09/13/16 09/14/16 19:00 07:00 Intake Total 120 ml Balance 120 ml Intake Oral 120 ml Current Medications Medications (Trade) Dose Ordered Sig/Mili Route PRN Reason Start Time Stop Time Status Last Admin Dose Admin Acetaminophen (Tylenol) 650 mg Q4H PRN ORAL fever 09/11/16 00:00 10/11/16 00:00 Al Hydroxide/Mg Hydroxide (Mylanta II) 30 ml Q6H PRN ORAL dyspepsia 09/11/16 00:00 10/11/16 00:00 Dextrose (Dextrose 50%) STAT PRN IV Hypoglycemia 09/11/16 00:00 10/11/16 00:00 Lorazepam (Ativan 2mg/ml 1ml) 0.5 mg Q4H PRN IV For Anxiety 09/11/16 00:00 09/18/16 00:00 Ondansetron HCl (Zofran) 4 mg Q6H PRN IVP Nausea & Vomiting 09/11/16 00:00 10/11/16 00:00 Polyethylene Glycol (Miralax) 17 gm HSPRN PRN ORAL Constipation 09/11/16 00:00 10/11/16 00:00 Zolpidem Tartrate (Ambien) 5 mg HSPRN PRN ORAL Insomnia 09/11/16 00:00 10/11/16 00:00 KALIN SERVIN Sep 14, 2016 15:44
--- NOTE | 2016-09-15 11:30 | Progress Note ---
DATE: 09/13/2016 SUBJECTIVE: He has failure to thrive, confused, disorganized thought process, and mood liability. I am going to continue to treat him with psychotropic medications to stabilize his mood. Chart reviewed and discussed with staff. Seen and assessed at the bedside. Daisy Travis M.D. DR: SAEED JOB#: [id number] CC:
[2016-09-15 12:00] VITALS: BP 135/87
--- NOTE | 2016-09-15 12:00 | Progress Note ---
DATE: 09/15/2016 SUBJECTIVE: The patient has failure to thrive, confusion, and disorganized thought process. I am going to add Zyprexa 10 mg to prevent any further decline in his cognition, psychosis, and mood liability. Transferred to [facility]. Chart reviewed and discussed with staff. Seen and assessed at the bedside. Daisy Travis M.D. DR: SAEED JOB#: [id number] CC:
[2016-09-15 12:07] LABS: BASOPHILS % (AUTO) 0.8 % (0.0-2.0); EOSINOPHILS % (AUTO) 2.4 % (0.0-3.0); LYMPHOCYTES % (AUTO) 32.6 % (20.0-45.0); MEAN CORPUSCULAR HEMOGLOBIN 30.3 PG (27.0-31.0); MEAN CORPUSCULAR HGB CONC 33.2 G/DL (32.0-36.0); MEAN CORPUSCULAR VOLUME 91 FL (80-99); MEAN PLATELET VOLUME 10.8 FL (6.5-10.1); MONOCYTES % (AUTO) 7.2 % (1.0-10.0); NEUTROPHILS % (AUTO) 57.1 % (45.0-75.0); PLATELET COUNT 162 K/UL (150-450); RED CELL DISTRIBUTION WIDTH 13.3 % (11.6-14.8); WHITE BLOOD COUNT 6.6 K/UL (4.8-10.8)
[2016-09-15 12:21] LABS: ANION GAP 18 (5-15); CALCIUM 9.7 mg/dL (8.6-10.2); CARBON DIOXIDE 24 mEQ/L (20-30); CHLORIDE 97 mEQ/L (98-107); CREATININE 1.1 mg/dL (0.7-1.2); GLOMERULAR FILTRATION RATE > 60 mL/min (>60); HEMOLYSIS 4; POTASSIUM 3.9 mEQ/L (3.4-4.9); SODIUM 139 mEQ/L (135-145)
--- NOTE | 2016-09-15 12:45 | Progress Note ---
DATE: 09/12/2016 SUBJECTIVE: The patient is a 71-year-old male patient with failure to thrive, still irritable, confused, disorganized continue to treatment with medication decline his cognition. Chart reviewed and discussed with staff. Seen and assessed at the bedside. medical clearance. Daisy Travis M.D. DR: SAEED JOB#: [id number] CC:
--- NOTE | 2016-09-15 12:45 | Progress Note ---
DATE: 09/14/2016 SUBJECTIVE: This is a 71-year-old male, confused, disorganized . PLAN: Plan for this patient to treat him with psychotropic medications to stabilize his mood. Chart reviewed and discussed with staff. Seen and assessed at bedside. Continue to treat him with psychotropic medications. Daisy Travis M.D. DR: SAEED JOB#: [id number] CC:
--- NOTE | 2016-09-15 15:26 | General Progress Note ---
Assessment/Plan Problem List: (1) Alcohol Intoxication (2) Dehydration ICD Codes: E86.0 - Dehydration SNOMED: 35164400 (3) Failure to thrive SNOMED: 43328285 Qualifiers: Qualified Codes: R62.7 - Adult failure to thrive (4) COPD (chronic obstructive pulmonary disease) ICD Codes: J44.9 - Chronic obstructive pulmonary disease, unspecified SNOMED: 65111473 (5) Schizophrenia ICD Codes: F20.9 - Schizophrenia, unspecified SNOMED: 84448768 Status: stable, progressing, tolerating diet Assessment/Plan ot pt diet ivf dc to snf Subjective Constitutional: Reports: weakness Allergies: Coded Allergies: CODEINE (Unverified Allergy, Unknown, 09/10/16) All Systems: reviewed and negative except above Subjective confused in bed Objective Last 24 Hour Vital Signs Date Time Temp Pulse Resp B/P Pulse Ox O2 Delivery O2 Flow Rate FiO2 09/15/16 12:00 97.0 103 19 135/87 96 Room Air Laboratory Tests 09/15/16 11:40: White Blood Count 6.6, Red Blood Count 4.90, Hemoglobin 14.8, Hematocrit 44.6, Mean Corpuscular Volume 91, Mean Corpuscular Hemoglobin 30.3, Mean Corpuscular Hemoglobin Concent 33.2, Red Cell Distribution Width 13.3, Platelet Count 162, Mean Platelet Volume 10.8H, Neutrophils (%) (Auto) 57.1, Lymphocytes (%) (Auto) 32.6, Monocytes (%) (Auto) 7.2, Eosinophils (%) (Auto) 2.4, Basophils (%) (Auto ) 0.8, Sodium Level 139, Potassium Level 3.9, Chloride Level 97L, Carbon Dioxide Level 24, Anion Gap 18H, Blood Urea Nitrogen 18, Creatinine 1.1, Estimat Glomerular Filtration Rate > 60, Glucose Level 76, Calcium Level 9.7 Height (Feet): 5 Height (Inches): 7.00 Weight (Pounds): 160 General Appearance: lethargic, confused EENT: normal ENT inspection Neck: normal alignment Cardiovascular: normal peripheral pulses, normal rate, regular rhythm Respiratory/Chest: chest wall non-tender, lungs clear, normal breath sounds Abdomen: normal bowel sounds, non tender, soft Extremities: normal inspection Edema: no edema noted Arm (L), no edema noted Arm (R), no edema noted Leg (L), no edema noted Leg (R), no edema noted Pedal (L), no edema noted Pedal (R), no edema noted Generalized Neurologic: abnormal library monitor II-XII Skin: normal pigmentation, warm/dry ANN MARIE WISE Sep 15, 2016 15:26
--- NOTE | 2016-09-15 15:52 | Infectious Diseases Prog Note ---
Assessment/Plan Problems: (1) Failure to thrive Assessment & Plan: will screen for HIV and syphilis, labs were not collected, will reorder, recommend dietitian consult (2) Dehydration Assessment & Plan: continue ivf fluids , monitor electrolytes (3) COPD (chronic obstructive pulmonary disease) Assessment & Plan: continue nebulizers, and oxygen (4) Schizophrenia Assessment & Plan: continue psych meds, folow up with psychiatrist Subjective Constitutional: Reports: no symptoms HEENT: Reports: no symptoms Respiratory: Reports: no symptoms Breasts: Reports: no symptoms Cardiovascular: Reports: no symptoms Gastrointestinal/Abdominal: Reports: no symptoms Genitourinary: Reports: no symptoms Neurologic: Reports: no symptoms Psychiatric: Reports: no symptoms Skin: Reports: no symptoms Endocrine: Reports: no symptoms Hematologic: Reports: no symptoms Allergies: Coded Allergies: CODEINE (Unverified Allergy, Unknown, 09/10/16) Objective Vital Signs Last 24 Hour Vital Signs Date Time Temp Pulse Resp B/P Pulse Ox O2 Delivery O2 Flow Rate FiO2 09/15/16 12:00 97.0 103 19 135/87 96 Room Air Height (Feet): 5 Height (Inches): 7.00 Weight (Pounds): 160 General Appearance: WD/WN, no acute distress HEENT: normocephalic, atraumatic, anicteric, mucous membranes moist Respiratory/Chest: chest wall non-tender, lungs clear, normal breath sounds, no respiratory distress, no accessory muscle use, decreased breath sounds Cardiovascular: normal peripheral pulses, normal rate, regular rhythm, no gallop/murmur, no JVD Abdomen: normal bowel sounds, soft, non tender, no organomegaly, non distended , no mass, no scars Extremities: no cyanosis, no clubbing Skin: no rash, no lesions, no ulcers Lymphatic: no neck adenopathy, no groin adenopathy Laboratory Tests Test 09/15/16 11:40 White Blood Count 6.6 K/UL (4.8-10.8) Red Blood Count 4.90 M/UL (4.70-6.10) Hemoglobin 14.8 G/DL (14.2-18.0) Hematocrit 44.6 % (42.0-52.0) Mean Corpuscular Volume 91 FL (80-99) Mean Corpuscular Hemoglobin 30.3 PG (27.0-31.0) Mean Corpuscular Hemoglobin Concent 33.2 G/DL (32.0-36.0) Red Cell Distribution Width 13.3 % (11.6-14.8) Platelet Count 162 K/UL (150-450) Mean Platelet Volume 10.8 FL (6.5-10.1) H Neutrophils (%) (Auto) 57.1 % (45.0-75.0) Lymphocytes (%) (Auto) 32.6 % (20.0-45.0) Monocytes (%) (Auto) 7.2 % (1.0-10.0) Eosinophils (%) (Auto) 2.4 % (0.0-3.0) Basophils (%) (Auto) 0.8 % (0.0-2.0) Sodium Level 139 mEQ/L (135-145) Potassium Level 3.9 mEQ/L (3.4-4.9) Chloride Level 97 mEQ/L (98-107) L Carbon Dioxide Level 24 mEQ/L (20-30) Anion Gap 18 (5-15) H Blood Urea Nitrogen 18 mg/dL (7-23) Creatinine 1.1 mg/dL (0.7-1.2) Estimat Glomerular Filtration Rate > 60 mL/min (>60) Glucose Level 76 mg/dL (74-106) Calcium Level 9.7 mg/dL (8.6-10.2) Current Medications Medications (Trade) Dose Ordered Sig/Mili Route PRN Reason Start Time Stop Time Status Last Admin Dose Admin Acetaminophen (Tylenol) 650 mg Q4H PRN ORAL fever 09/11/16 00:00 10/11/16 00:00 Al Hydroxide/Mg Hydroxide (Mylanta II) 30 ml Q6H PRN ORAL dyspepsia 09/11/16 00:00 10/11/16 00:00 Dextrose (Dextrose 50%) STAT PRN IV Hypoglycemia 09/11/16 00:00 10/11/16 00:00 Lorazepam (Ativan 2mg/ml 1ml) 0.5 mg Q4H PRN IV For Anxiety 09/11/16 00:00 09/18/16 00:00 Olanzapine (ZyPREXA) 10 mg BID ORAL 09/15/16 09:00 10/15/16 08:59 Ondansetron HCl (Zofran) 4 mg Q6H PRN IVP Nausea & Vomiting 09/11/16 00:00 10/11/16 00:00 Polyethylene Glycol (Miralax) 17 gm HSPRN PRN ORAL Constipation 09/11/16 00:00 10/11/16 00:00 Zolpidem Tartrate (Ambien) 5 mg HSPRN PRN ORAL Insomnia 09/11/16 00:00 10/11/16 00:00 Irasema Molina M.D. Sep 15, 2016 15:51
--- NOTE | 2016-09-15 16:13 | Pulmonology Progress Note ---
Assessment/Plan Problems: (1) COPD (chronic obstructive pulmonary disease) (2) Refusal of treatment by patient (3) Failure to thrive (4) Schizophrenia Subjective ROS Limited/Unobtainable: No Constitutional: Reports: no symptoms HEENT: Repors: no symptoms Respiratory: Reports: no symptoms Allergies: Coded Allergies: CODEINE (Unverified Allergy, Unknown, 09/10/16) Objective Last 24 Hour Vital Signs Date Time Temp Pulse Resp B/P Pulse Ox O2 Delivery O2 Flow Rate FiO2 09/15/16 12:00 97.0 103 19 135/87 96 Room Air Laboratory Tests 09/15/16 11:40: White Blood Count 6.6, Red Blood Count 4.90, Hemoglobin 14.8, Hematocrit 44.6, Mean Corpuscular Volume 91, Mean Corpuscular Hemoglobin 30.3, Mean Corpuscular Hemoglobin Concent 33.2, Red Cell Distribution Width 13.3, Platelet Count 162, Mean Platelet Volume 10.8H, Neutrophils (%) (Auto) 57.1, Lymphocytes (%) (Auto) 32.6, Monocytes (%) (Auto) 7.2, Eosinophils (%) (Auto) 2.4, Basophils (%) (Auto ) 0.8, Sodium Level 139, Potassium Level 3.9, Chloride Level 97L, Carbon Dioxide Level 24, Anion Gap 18H, Blood Urea Nitrogen 18, Creatinine 1.1, Estimat Glomerular Filtration Rate > 60, Glucose Level 76, Calcium Level 9.7 Current Medications Medications (Trade) Dose Ordered Sig/Mili Route PRN Reason Start Time Stop Time Status Last Admin Dose Admin Acetaminophen (Tylenol) 650 mg Q4H PRN ORAL fever 09/11/16 00:00 10/11/16 00:00 Al Hydroxide/Mg Hydroxide (Mylanta II) 30 ml Q6H PRN ORAL dyspepsia 09/11/16 00:00 10/11/16 00:00 Dextrose (Dextrose 50%) STAT PRN IV Hypoglycemia 09/11/16 00:00 10/11/16 00:00 Lorazepam (Ativan 2mg/ml 1ml) 0.5 mg Q4H PRN IV For Anxiety 09/11/16 00:00 09/18/16 00:00 Olanzapine (ZyPREXA) 10 mg BID ORAL 09/15/16 09:00 10/15/16 08:59 Ondansetron HCl (Zofran) 4 mg Q6H PRN IVP Nausea & Vomiting 09/11/16 00:00 10/11/16 00:00 Polyethylene Glycol (Miralax) 17 gm HSPRN PRN ORAL Constipation 09/11/16 00:00 10/11/16 00:00 Zolpidem Tartrate (Ambien) 5 mg HSPRN PRN ORAL Insomnia 09/11/16 00:00 10/11/16 00:00 KALIN SERVIN Sep 15, 2016 16:13
--- NOTE | 2016-09-16 11:01 | Consultation ---
DATE OF CONSULTATION: 09/11/2016 HISTORY OF PRESENT ILLNESS: This is a male patient, who is confused and disorganized male patient who is admitted to the hospital. Initial psychiatric consultation by . The patient has failure to thrive and he was admitted to [facility] because he has failure to thrive, dehydration, also alcohol intoxication, altered mental status, agitation and paranoia, and also expressing auditory hallucinations. The patient has overlying diagnosis of paranoid schizophrenia, but has been off the psychotropic medication, now he has confusion, disorganized thought process, mood liability. That is why there was a psychiatric consultation requested. He is very agitated, irritable, intermittently as well resistant to care. MEDICAL HISTORY: Failure to thrive, dehydration, alcohol intoxication, rule out COPD, difficulty with ambulation, and lower extremity weakness. ALLERGIES: Codeine. SOCIAL HISTORY: Lives in [facility]. Financially supported by [employer] and Medicare. SUBSTANCE ABUSE HISTORY: History of alcohol abuse. PSYCHIATRIC HISTORY: Schizoaffective, bipolar type, rule out paranoid schizophrenia. Multiple psychiatric admissions. MENTAL STATUS EXAMINATION: The patient is a 71-year-old male with psychomotor agitation. Mood is irritable and agitated. Affect is guarded and restricted. Thought process is disorganized and logical. Intermittent suicidal ideation. Denies homicidal ideation. Insight and judgment is poor. DIAGNOSIS: Paranoid schizophrenia with acute exacerbation. PLAN: We will restart him on psychotropic medications, we will transfer to [facility] once he is medically cleared. We will initiate transfer to psychiatry ___ at [facility] that is on 09/11/2016. Chart was reviewed and discussed with staff. The patient is seen and assessed at bedside. Daisy Travis M.D. DR: COY JOB#: [id number] CC:
--- NOTE | 2016-09-16 13:28 | General Progress Note ---
Assessment/Plan Problem List: (1) Alcohol Intoxication (2) Dehydration ICD Codes: E86.0 - Dehydration SNOMED: 80128241 (3) Failure to thrive SNOMED: 55411344 Qualifiers: Qualified Codes: R62.7 - Adult failure to thrive (4) COPD (chronic obstructive pulmonary disease) ICD Codes: J44.9 - Chronic obstructive pulmonary disease, unspecified SNOMED: 61281059 (5) Schizophrenia ICD Codes: F20.9 - Schizophrenia, unspecified SNOMED: 06136930 Status: stable, progressing, tolerating diet Assessment/Plan ot pt diet ivf cbc bmp am dc to snf Subjective Constitutional: Reports: weakness Allergies: Coded Allergies: CODEINE (Unverified Allergy, Unknown, 09/10/16) All Systems: reviewed and negative except above Subjective confused in bed Objective Height (Feet): 5 Height (Inches): 7.00 Weight (Pounds): 160 General Appearance: confused EENT: normal ENT inspection Neck: normal alignment Cardiovascular: normal peripheral pulses, normal rate, regular rhythm Respiratory/Chest: chest wall non-tender, lungs clear, normal breath sounds Abdomen: normal bowel sounds, non tender, soft Extremities: normal inspection Edema: no edema noted Arm (L), no edema noted Arm (R), no edema noted Leg (L), no edema noted Leg (R), no edema noted Pedal (L), no edema noted Pedal (R), no edema noted Generalized Neurologic: motor weakness Skin: normal pigmentation, warm/dry ANN MARIE WISE Sep 16, 2016 13:28
--- NOTE | 2016-09-16 14:59 | Infectious Diseases Prog Note ---
Assessment/Plan Problems: (1) Failure to thrive Assessment & Plan: screening for HIV and syphilis was not done, will reorder them again , labs were not collected, will reorder, recommend dietitian consult (2) Dehydration Assessment & Plan: continue ivf fluids , monitor electrolytes (3) COPD (chronic obstructive pulmonary disease) Assessment & Plan: continue nebulizers, and oxygen (4) Schizophrenia Assessment & Plan: continue psych meds, folow up with psychiatrist Subjective Constitutional: Reports: no symptoms HEENT: Reports: no symptoms Respiratory: Reports: no symptoms Breasts: Reports: no symptoms Cardiovascular: Reports: no symptoms Gastrointestinal/Abdominal: Reports: no symptoms Genitourinary: Reports: no symptoms Neurologic: Reports: no symptoms Psychiatric: Reports: no symptoms Skin: Reports: no symptoms Endocrine: Reports: no symptoms Hematologic: Reports: no symptoms Musculoskeletal: Reports: no symptoms Allergies: Coded Allergies: CODEINE (Unverified Allergy, Unknown, 09/10/16) Objective Height (Feet): 5 Height (Inches): 7.00 Weight (Pounds): 160 General Appearance: WD/WN, no acute distress HEENT: normocephalic, atraumatic, anicteric, mucous membranes moist, PERRL Respiratory/Chest: chest wall non-tender, lungs clear, normal breath sounds, no respiratory distress, no accessory muscle use Cardiovascular: normal peripheral pulses, normal rate, regular rhythm, no gallop/murmur, no JVD Abdomen: normal bowel sounds, soft, non tender, no organomegaly, non distended , no mass Extremities: no cyanosis, no clubbing Skin: no rash, no lesions, no ulcers Neurologic/Psychiatric: alert, oriented x 3 Lymphatic: no neck adenopathy, no groin adenopathy Musculoskeletal: normal muscle bulk Current Medications Medications (Trade) Dose Ordered Sig/Mili Route PRN Reason Start Time Stop Time Status Last Admin Dose Admin Acetaminophen (Tylenol) 650 mg Q4H PRN ORAL fever 09/11/16 00:00 10/11/16 00:00 Al Hydroxide/Mg Hydroxide (Mylanta II) 30 ml Q6H PRN ORAL dyspepsia 09/11/16 00:00 10/11/16 00:00 Dextrose (Dextrose 50%) STAT PRN IV Hypoglycemia 09/11/16 00:00 10/11/16 00:00 Lorazepam (Ativan 2mg/ml 1ml) 0.5 mg Q4H PRN IV For Anxiety 09/11/16 00:00 09/18/16 00:00 Olanzapine (ZyPREXA) 10 mg BID ORAL 09/15/16 09:00 10/15/16 08:59 Ondansetron HCl (Zofran) 4 mg Q6H PRN IVP Nausea & Vomiting 09/11/16 00:00 10/11/16 00:00 Polyethylene Glycol (Miralax) 17 gm HSPRN PRN ORAL Constipation 09/11/16 00:00 10/11/16 00:00 Zolpidem Tartrate (Ambien) 5 mg HSPRN PRN ORAL Insomnia 09/11/16 00:00 10/11/16 00:00 Irasema Molina M.D. Sep 16, 2016 14:59
--- NOTE | 2016-09-16 15:44 | Pulmonology Progress Note ---
Assessment/Plan Problems: (1) COPD (chronic obstructive pulmonary disease) (2) Refusal of treatment by patient (3) Failure to thrive (4) Schizophrenia Subjective Allergies: Coded Allergies: CODEINE (Unverified Allergy, Unknown, 09/10/16) Objective Current Medications Medications (Trade) Dose Ordered Sig/Mili Route PRN Reason Start Time Stop Time Status Last Admin Dose Admin Acetaminophen (Tylenol) 650 mg Q4H PRN ORAL fever 09/11/16 00:00 10/11/16 00:00 Al Hydroxide/Mg Hydroxide (Mylanta II) 30 ml Q6H PRN ORAL dyspepsia 09/11/16 00:00 10/11/16 00:00 Dextrose (Dextrose 50%) STAT PRN IV Hypoglycemia 09/11/16 00:00 10/11/16 00:00 Lorazepam (Ativan 2mg/ml 1ml) 0.5 mg Q4H PRN IV For Anxiety 09/11/16 00:00 09/18/16 00:00 Olanzapine (ZyPREXA) 10 mg BID ORAL 09/15/16 09:00 10/15/16 08:59 Ondansetron HCl (Zofran) 4 mg Q6H PRN IVP Nausea & Vomiting 09/11/16 00:00 10/11/16 00:00 Polyethylene Glycol (Miralax) 17 gm HSPRN PRN ORAL Constipation 09/11/16 00:00 10/11/16 00:00 Zolpidem Tartrate (Ambien) 5 mg HSPRN PRN ORAL Insomnia 09/11/16 00:00 10/11/16 00:00 KALIN SERVIN Sep 16, 2016 15:44
--- NOTE | 2016-09-16 20:11 | Geriatric Progress Note ---
Assessment/Plan Assessment/Plan A/1) COPD (chronic obstructive pulmonary disease) (2) Refusal of treatment by patient (3) Failure to thrive (4) Schizophrenia P/cont current meds Subjective Constitutional: Reports: malaise, weakness Mood/Memory: Reports: anxiety, depressed feelings, emotional problems, prior hx Psychiatric: Reports: hallucinations Geriatric Geriatric Current Medications Medications (Trade) Dose Ordered Sig/Mili Route PRN Reason Start Time Stop Time Status Last Admin Dose Admin Acetaminophen (Tylenol) 650 mg Q4H PRN ORAL fever 09/11/16 00:00 10/11/16 00:00 Al Hydroxide/Mg Hydroxide (Mylanta II) 30 ml Q6H PRN ORAL dyspepsia 09/11/16 00:00 10/11/16 00:00 Dextrose (Dextrose 50%) STAT PRN IV Hypoglycemia 09/11/16 00:00 10/11/16 00:00 Lorazepam (Ativan 2mg/ml 1ml) 0.5 mg Q4H PRN IV For Anxiety 09/11/16 00:00 09/18/16 00:00 Olanzapine (ZyPREXA) 10 mg BID ORAL 09/15/16 09:00 10/15/16 08:59 Ondansetron HCl (Zofran) 4 mg Q6H PRN IVP Nausea & Vomiting 09/11/16 00:00 10/11/16 00:00 Polyethylene Glycol (Miralax) 17 gm HSPRN PRN ORAL Constipation 09/11/16 00:00 10/11/16 00:00 Zolpidem Tartrate (Ambien) 5 mg HSPRN PRN ORAL Insomnia 09/11/16 00:00 10/11/16 00:00 Height (Feet): 5 Height (Inches): 7.00 Weight (Pounds): 160 General Appearance: well appearing, no apparent distress, alert, good eye contact Neurologic: alert, oriented x3 Psychiatric Behavior: cooperative Language/Speech: slow Orientation: person, place, situation Affect: restricted Memory: immediate, recent, remote Hood Olivas M.D. Sep 16, 2016 20:11
--- NOTE | 2016-09-18 13:00 | Discharge Summary ---
Discharge Summary Hospital Course Date of Admission Sep 11, 2016 at 00:30 Date of Discharge Sep 16, 2016 at 19:10 Admitting Diagnosis FAILURE TO THRIVE, DEHYDRATION SHANNON Marilu Singh is a 71 year old male who was admitted on Sep 11, 2016 at 00:30 for Failure To Thrive/Dehydration Hospital Course [id number] Discharge Discharge Disposition Patient was discharged to SNF/Subacute Facility(03) Discharge Diagnoses: Jeaneth Rivera NP Sep 18, 2016 13:00
--- NOTE | 2016-09-19 06:45 | Discharge Summary 2 SIG ---
DATE OF ADMISSION: 09/11/2016 DATE OF DISCHARGE: 09/16/2016 CONSULTANTS: 1. Irasema Molina M.D. 2. José Manuel Dewitt M.D. 3. Daisy Travis M.D. BRIEF HOSPITAL COURSE: The patient is a 71-year-old male with a history of COPD and schizophrenia, who is a resident of [facility], presented to the hospital for failure to thrive, dehydration, and encephalopathy. The patient has a history of COPD and schizophrenia and had poor p.o. intake, refusing food and medications at care home. On further evaluation, the patient was found to be dehydrated and malnourished and was admitted for further workup. He was given IV hydration and underwent psychiatric evaluation. He had overlying diagnosis of paranoid schizophrenia, but has been off psychotropic medications. He presented with confusion, disorganized thought, mood lability, and was agitated, irritable, and resistant to care. He was started on Zyprexa and was given nebulizer treatment and oxygen supplementation for his COPD. He was planned to be screened for HIV and syphilis, however, laboratories were not collected. He was planned for transfer to [facility], however, no beds were available. [facility] would not take the patient back and the patient would need to be placed to a different SNFs. The patient was referred to several nursing homes and was eventually accepted to [facility]. The patient was eventually discharged to SNF. FINAL DIAGNOSES: 1. Failure to thrive. 2. Dehydration. 3. Paranoid schizophrenia. 4. Chronic obstructive pulmonary disease. 5. Refusal of treatment. Kulwant Salazar D.O. I have been assigned to dictate discharge summary on this account and I was not involved in the patient's management. Jeaneth Rivera N.P. DR: Lisette JOB#: [id number] CC: SHAWNA
--- NOTE | 2016-09-22 23:30 | Progress Note ---
DATE: 09/16/2016 SUBJECTIVE: This is a male patient who continues to have some agitation, irritability, and mood debility. PLAN: My plan for this patient is to treat him with medication to prevent any mood debility and agitation. I am going to continue treat him with Zyprexa to reduce agitation, irritability, and mood lability. Chart reviewed and discussed with staff. Seen and assessed at the bedside. Daisy Travis M.D. DR: Andrea JOB#: [id number] CC:
== END 2016-09-16 19:10 | DRG 640 ==
LOC: EDBD 23:34 → EMR 23:40 → 4W 09-11 00:30 → EDBEDREQ 09-11 01:18
DX: E86.0 Dehydration (principal); G93.40 Encephalopathy, unspecified; N39.0 Urinary tract infection, site not specified; J44.9 Chronic obstructive pulmonary disease, unspecified; F20.0 Paranoid schizophrenia; R62.7 Adult failure to thrive; F10.129 Alcohol abuse with intoxication, unspecified; Z88.6 Allergy status to analgesic agent; F41.9 Anxiety disorder, unspecified; Z53.20 Procedure and treatment not carried out because of patient's decision for unspecified reasons
CPT/HCPCS: 36415; 80048; 80053; 81001; 84484; 85025; 87040; 97803